=== PATIENT | female | born 1980 | race Caucasian/White ===

== ENCOUNTER 2016-11-15 22:03 | Emergency (ER) | payer OTHER ==
--- NOTE | ~2016-11-15 | CR142 ---
[facility] A Service of [facility] RADIOLOGY TEXT RESULTS PATIENT: GARRET PEREZ LOCATION: [facility] : 80 UNIT #: [id number] AGE: [address]: Dion Lewis MD SEX: F ORDER DR: [id number] [facility]. [place], [place] [address] [id number] MR#: [id number] #: [id number] NAME: GARRET PEREZ : 1980 SEX: F STUDY DATE/TIME: 11/15/2016 23:36 UNIT: [facility] ROOM: STUDY DESCRIPTION: CR Hand Min 3 Views Rt Attending Physician: Dion Lewis M.D. Ordering Physician: Dion Lewis M.D. Primary Care Physician: No Primary Care Physician MEDICAL IMAGING REPORT This report is preliminary unless electronic signature is present EXAM Right hand series, 11/15/2016. HISTORY 36-year-old female in the ED with right fifth finger pain and deformity after unspecified injury earlier today. TECHNIQUE Three-view right hand series. FINDINGS The examination shows complete dorsal dislocation of the right fifth DIP joint. No visible fracture. Old healed fracture deformity of the fifth metacarpal. Remainder of the examination is negative. IMPRESSION 1. Dorsal dislocation of the fifth PIP joint. 2. Old healed fifth metacarpal fracture. Dictated by... Talha Jacques M.D. THIS IS AN ELECTRONICALLY VERIFIED REPORT Talha Jacques M.D. at 11/16/2016 10:00 PM RGW/frank TD: 11/16/2016 12:14 JOB #: [id number] [facility] A Service of [facility] RADIOLOGY TEXT RESULTS PATIENT: GARRET PEREZ LOCATION: [facility] : 80 UNIT #: [id number] AGE: [address]: Dion Lewis MD SEX: F ORDER DR: MEDICAL IMAGING REPORT Page 1 of 1 COPY
--- NOTE | ~2016-11-15 | ER ---
Unit #: [id number] #: [id number] Patient: GARRET PEREZ [id number] [address] [place], [place] [address] [id number] MR#: [id number] NAME: GARRET PEREZ ROOM: Sex: F Age: 36 : 1980 Service Date: 11/15/2016 Attending Physician: Dion Lewis M.D. Primary Care Physician: No Primary Care Physician EMERGENCY DEPT PHYSICIAN NOTE Please see the written T-sheet for the full details of the encounter and procedures performed. Ms. Perez is a 36-year-old woman who suffered a fall earlier this evening injuring her right fifth digit of her hand. She initially went to [facility] to be evaluated for this complaint. The patient signed in and was very concerned about the apparent deformity of her finger complaining of 10 out of 10 pain. The patient states that she did not feel her complaints were being met in a timely fashion and, thus, she left without being seen immediately coming to our facility to seek treatment for the same complaint. The patient was anxious and tearful again here complaining of 10 out of 10 pain related to her pinky finger injury on her right hand. There was a deformity of the distal fifth digit on the right hand and what appeared to be a superficial abrasion on that finger with some dry clot present. The patient was administered 10 mg of hydrocodone for her pain and x-rays were obtained. The patient was also digitally blocked with 1% lidocaine without epi. The digital block was very challenging due to the lack of patient cooperation. She frequently moved her hand during the procedure and wound not hold still to adequately inject the lidocaine into her finger. As such, the patient stated that she received no relief from the digital block or the oral pain medication and states she was still in 10 out of 10 pain. At that time, the x-rays had been read by the radiologist showing a dislocation of the DIP in that digit. However, no fracture was noted. A second attempt was made to digitally block the finger and, again, the patient reported that this was completely unsuccessful and she had no relief of her pain. I tried to explain to the patient that I felt that her pain would be better if she allowed me to reduce the digit but the patient stated that she was unhappy with this and wanted something for pain relief as what I had given her had been totally inadequate, in her opinion. I explained to the patient that given her complaint and no associated fracture, that I thought the oral narcotic and attempt at a digital block was more than reasonable treatment for her complaint. The patient strongly disagreed and requested that additional pain medications be administered. I stated to the patient that I thought that IM or IV narcotics would be inappropriate in an isolated dislocation of the distal finger. The patient became very upset at this raising her voice and stating that she said nothing about wanting narcotics, she just wanted to be out of "f*cking pain" and stated that she wound be content to get Tylenol or something else to help with her pain. At that time, while I was talking to the patient, I told her that if I was able to reduce it it might help with her pain. She continued to argue and complain about her pain management accusing me to being insensitive to her 10 out of 10 pain. Unit #: [id number] #: [id number] Patient: GARRET PEREZ While she was remarking on these issues, I very quickly and successfully reduced the DIP of her fifth digit without complication. I apologized to the patient that she felt that she did not receive adequate care but told her at this time we would be splinting her finger, I would administer additional pain medicine (Toradol 60 mg IM was ordered) and that the patient would be discharged home with recommendation to followup with [facility] as soon as possible. Dictated by... Dior Madrid/ronak TD: 11/16/2016 06:48 JOB #: [id number] EMERGENCY DEPT PHYSICIAN NOTE Page 1 of 1 X Dion Lewis MD X EMERGENCY DEPARTMENT REPORT
[~2016-11-15 22:03] MED LIST: ALPRAZOLAM PO; AMOXICILLIN250 MG PO; AURALGAN AS; BACTRIM DS TABL1 TA1 PO; BACTRIM DS TABL1 TAB PO; CLEOCIN HCL300 M1 PO; FLEXERIL PO; FLEXERIL10 MG; KLONOPIN0.5 MG PO; LEXAPRO5 MG; LORTAB 10-5001 EACH PO; LORTAB 7.5-5001 TAB PO; MOBIC15 MG PO; MOTRIN600 MG PO; NAPROSYN500 MG PO; NO MEDICATIONS; PAXIL CR25 MG PO; PAXIL PO; PHENERGAN PO
== END 2016-11-16 01:16 | disposition home or self-care (01) ==
LOC: CED 22:03
DX: S63.286A Dislocation of proximal interphalangeal joint of right little finger, initial encounter (principal); F41.9 Anxiety disorder, unspecified; F31.9 Bipolar disorder, unspecified; F17.200 Nicotine dependence, unspecified, uncomplicated; Z79.899 Other long term (current) drug therapy; W19.XXXA Unspecified fall, initial encounter
CPT/HCPCS: 29130; 73130; 96372; 99284; J1885